=== PATIENT | male | born 1965 | race Caucasian/White ===

== ENCOUNTER 2019-12-04 09:34 | Emergency (ER) | payer MEDICAID ==
[~2019-12-04] VITALS: Ht 172.7 cm; Wt 90.7 kg
[2019-12-04 10:05] VITALS: Ht 172.7 cm; Wt 90.7 kg
[2019-12-04 11:59] VITALS: BP 135/87
== END 2019-12-04 11:59 | disposition home or self-care (01) ==
LOC: ED 09:34
DX: M47.9 Spondylosis, unspecified (principal); K59.00 Constipation, unspecified